=== PATIENT | female | born 2000 | race Caucasian/White ===

== ENCOUNTER 2019-08-08 08:47 | Emergency (ER) | payer OTHER ==
[~2019-08-08] VITALS: Ht 157.5 cm; Wt 65.8 kg
== END 2019-08-08 10:36 | disposition home or self-care (01) ==
LOC: ER 08:47
DX: M54.2 Cervicalgia (principal); F41.9 Anxiety disorder, unspecified
CPT/HCPCS: 99283; A9270-GY

== ENCOUNTER → 2023-04-05 | Outpatient (CLI) | payer OTHER ==
[2023-04-05 19:44] LABS: Follicle Stimulating Hormone 6.2 mIU/ml; Prolactin 4.7 ng/mL
== END | disposition home or self-care (01) ==
LOC: LAB 17:08 → LAB SHORT 17:08
PROVIDERS: Obstetrics & Gynecology
DX: Z01.419 Encounter for gynecological examination (general) (routine) without abnormal findings (principal); N91.4 Secondary oligomenorrhea
CPT/HCPCS: 36415; 83001; 83002; 83036; 84146; G0145